=== PATIENT | male | born 1965 | race Caucasian/White ===

== ENCOUNTER 2024-04-18 10:00 | Emergency (ER) | payer OTHER ==
[~2024-04-18] VITALS: Ht 180.3 cm; Wt 84.3 kg
[2024-04-18] MEDS: proparacaine 0.5% ophthalmic drops 15ml EACHEYE ONE (11:03)
[2024-04-18] MEDS ORDERED: CIPR2.5D21 LEFTEYE (11:39)
[2024-04-18 11:45] VITALS: BP 124/70; PULSE 80; RESP 16; TEMP 98; O2SAT 98
== END 2024-04-18 11:46 | disposition home or self-care (01) ==
LOC: ER 10:00
DX: S05.02XA Injury of conjunctiva and corneal abrasion without foreign body, left eye, initial encounter (principal); Z79.2 Long term (current) use of antibiotics; X58.XXXA Exposure to other specified factors, initial encounter; Y93.89 Activity, other specified; Y92.89 Other specified places as the place of occurrence of the external cause; Y99.8 Other external cause status
CPT/HCPCS: 99283